=== PATIENT | male | born 1955 | race Asian ===

== ENCOUNTER 2016-04-12 18:30 | Emergency (ER) | payer MEDICAID ==
[~2016-04-12] VITALS: Ht 167.6 cm; Wt 81.6 kg
[2016-04-12 19:24] VITALS: BP 130/78
[2016-04-12] MEDS ORDERED: KETOROLAC TROMETH 60MG/2ML VIAL IM ONE (20:00)
[2016-04-12] MEDS ORDERED: methylPREDNISolone SOD SUCC 125 MG/2 ML VL IM ONE (20:00)
== END 2016-04-12 20:22 | disposition home or self-care (01) ==
LOC: ER 18:36
DX: M10.9 Gout, unspecified (principal)
CPT/HCPCS: 96372; 99284; J1885; J2930